=== PATIENT | male | born 1980 | race Caucasian/White ===

== ENCOUNTER 2017-10-14 19:28 | Emergency (ER) | payer SELFPAY ==
--- NOTE | 2017-10-14 20:51 | PHYS DOC ---
Adult General Chief Complaint Chief Complaint: UPPER EXTREMITY SWELLING HPI HPI 37-year-old male presents with swollen right upper extremity. The patient noticed a small bump and redness 2 days ago and it is rapidly progressed. He is unable to deal with the pain anymore. The patient admits that he is an IV drug user and he injects somewhat close to the site. He has not had infections in the past that he remembers. He has not had fever or chills. He denies any other complaints or concerns. Review of Systems Review of Systems Constitutional: Denies fever or chills [] Eyes: Denies change in visual acuity, redness, or eye pain [] HENT: Denies nasal congestion or sore throat [] Respiratory: Denies cough or shortness of breath [] Cardiovascular: No additional information not addressed in HPI [] GI: Denies abdominal pain, nausea, vomiting, bloody stools or diarrhea [] : Denies dysuria or hematuria [] Musculoskeletal: Denies back pain or joint pain [] Integument: Abscess right upper arm[] Neurologic: Denies headache, focal weakness or sensory changes [] Endocrine: Denies polyuria or polydipsia [] All other systems were reviewed and found to be within normal limits, except as documented in this note. Allergies Allergies Allergies Coded Allergies Type Severity Reaction Last Updated Verified No Known Drug Allergies 10/14/17 No Physical Exam Physical Exam Constitutional: Well developed, well nourished, no acute distress, non-toxic appearance. [] HENT: Normocephalic, atraumatic, bilateral external ears normal, oropharynx moist, no oral exudates, nose normal. [] Eyes: PERRLA, EOMI, conjunctiva normal, no discharge. [] Neck: Normal range of motion, no tenderness, supple, no stridor. [] Cardiovascular:Heart rate regular rhythm, no murmur [] Lungs & Thorax: Bilateral breath sounds clear to auscultation [] Abdomen: Bowel sounds normal, soft, no tenderness, no masses, no pulsatile masses. [] Skin: 10 cm round erythematous area since this was cellulitis. There is a 3 cm fluctuant area in the center consistent with abscess[] Back: No tenderness, no CVA tenderness. [] Extremities: No tenderness, no cyanosis, no clubbing, ROM intact, no edema. [] Neurologic: Alert and oriented X 3, normal motor function, normal sensory function, no focal deficits noted. [] Psychologic: Affect normal, judgement normal, mood normal. [] EKG EKG [] Radiology/Procedures Radiology/Procedures [] Course & Med Decision Making Course & Med Decision Making Pertinent Labs and Imaging studies reviewed. (See chart for details) The patient had an abscess and cellulitis of the right upper extremity. I was able to drain the abscess. Please see note below for details. I'll place the patient on Bactrim DS 2 tabs twice a day for 10 days. Culture is pending. The patient did not have a fever and so IV antibiotics were not given. If the patient's condition worsens or if fever develops, he has been directed return to the emergency room I&D: I obtained verbal consent from the patient for an I&D of the right upper extremity. A timeout was performed to identify the correct site and procedure. I and the skin with Betadine. I then anesthetized the skin with 2% lidocaine. A total of 10 mL was used throughout the procedure. After anesthesia was achieved , I cut a 1 cm incision with a #11 blade into the skin. Purulent discharge began to be expressed. A wound culture was obtained. A significant amount of purulent fluid was expressed from the wound. I then inserted a sterile blunt Q- tip to break up the loculations. There were several loculations which led to more purulent discharge. After the abscess was drained, I placed a 1/2 inch wick to facilitate continued drainage. The end of this was taped to the patient' s arm. The wound was then covered with clean gauze dressing and Coban. There were no complications. [] Dragon Disclaimer Dragon Disclaimer This electronic medical record was generated, in whole or in part, using a voice recognition dictation system. Departure Departure: Referrals: PCP,NO (PCP) JAH MONSIVAIS DO Oct 14, 2017 20:51
[2017-10-14 21:15] VITALS: BP 112/66
[2017-10-14] MEDS ORDERED: SMX/TMP 800/160MG 2TABLET STARTPACK. PO ONE (22:25)
[2017-10-15 01:27] LABS: BASO # 0.1 x10^3/uL (0.0-0.2); BASO % 1 % (0-3); EOS % 0 % (0-3); HEMATOCRIT 35.8 % (39.0-53.0); HEMOGLOBIN 11.9 g/dL (13.0-17.5); LYMPH # 1.5 x10^3/uL (1.0-4.8); LYMPH % 12 % (24-48); MEAN CORPUSCULAR HEMOGLOBIN 28 pg (25-35); MEAN CORPUSCULAR HGB CONC 33 g/dL (31-37); MEAN CORPUSCULAR VOLUME 84 fL (79-100); MONO # 1.1 x10^3/uL (0.0-1.1); MONO % 9 % (0-9); NEUT # 9.9 x10^3uL (1.8-7.7); NEUT % 78 % (31-73); PLATELET COUNT 450 x10^3/uL (140-400); RED BLOOD COUNT 4.24 x10^6/uL (4.30-5.70); RED CELL DISTRIBUTION WIDTH 14.7 % (11.5-14.5); WHITE BLOOD COUNT 12.7 x10^3/uL (4.0-11.0)
[2017-10-15 01:36] LABS: CALCIUM 8.7 mg/dL (8.5-10.1); CREATININE 0.9 mg/dL (0.7-1.3); GFR 93.9; POTASSIUM 4.1 mmol/L (3.5-5.1)
== END 2017-10-14 22:36 | disposition home or self-care (01) ==
LOC: ER 19:28
DX: L02.413 Cutaneous abscess of right upper limb (principal); L03.113 Cellulitis of right upper limb
CPT/HCPCS: 10060; 36415; 80048; 85025; 87040; 87070; 99284